=== PATIENT | female | born 1945 | race Caucasian/White ===

== ENCOUNTER 2017-05-18 09:47 | Outpatient (CLI) | payer MEDICARE, BC ==
--- NOTE | 2017-05-19 16:08 | Mammography Report ---
DIGITAL SCREENING MAMMOGRAM: 05/18/2017 CLINICAL INDICATION: A 71-year-old with history of benign right breast biopsy, for screening. COMPARISON: 01/2015, 07/2014, 01/2014, 09/2012, 09/2011, 03/2011, 09/2010. TECHNIQUE: Routine CC and MLO projections were obtained of the breasts. FINDINGS: The breasts again demonstrate scattered fibroglandular densities bilaterally. Circumscribe d nodule in the right upper central breast is stable. No suspicious masses, clustered microcalcificat ions, or regions of architectural distortion are identified. IMPRESSION: BENIGN FINDINGS. RECOMMENDATION: ROUTINE ANNUAL SCREENING UNLESS OTHERWISE CLINICALLY INDICATED. BIRADS CATEGORY 2-BENIGN FINDINGS. STANDARD QUALIFYING STATEMENTS 1. This examination was reviewed with the aid of Computer-Aided Detection (CAD). 2. A negative or benign imaging report should not delay biopsy if clinically suspicious findings are present. Consider surgical consultation if warranted. More than 5% of cancers are not identified by i maging. 3. Dense breasts may obscure an underlying neoplasm. JOB #: [id number] EXT JOB #:[id number]
== END 2017-05-18 09:48 | disposition home or self-care (01) ==
LOC: DI 09:47
PROVIDERS: ATTEND Internal Medicine
DX: Z12.31 Encounter for screening mammogram for malignant neoplasm of breast (principal)
CPT/HCPCS: 77067

== ENCOUNTER 2017-07-15 15:32 | Outpatient (CLI) | payer MEDICARE, BC ==
[2017-07-15 13:31] LABS: BASOPHILS % (AUTO) 0.5 %; EOSINOPHILS # (AUTO) 0.2 10^3/uL (0.0-0.7); EOSINOPHILS % (AUTO) 3.7 %; HCT - HEMATOCRIT 37.4 % (37.0-47.0); HGB - HEMOGLOBIN 12.4 g/dL (12.0-16.0); LYMPHOCYTES # (AUTO) 1.9 10^3/uL (1.5-3.5); LYMPHOCYTES % (AUTO) 38.8 %; MEAN CORPUSCULAR HEMOGLOBIN 29.4 pg (27.0-31.0); MEAN CORPUSCULAR HGB CONC 33.3 g/dL (32.0-36.0); MEAN CORPUSCULAR VOLUME 88.4 fL (81.0-99.0); MEAN PLATELET VOLUME 7.9 fL (7.9-10.8); MONOCYTES # (AUTO) 0.3 10^3/uL (0.0-1.0); MONOCYTES % (AUTO) 6.3 %; NEUTROPHILS # (AUTO) 2.5 10^3/uL (1.5-6.6); NEUTROPHILS % (AUTO) 50.7 %; RED BLOOD COUNT 4.23 10^6/uL (4.20-5.40); RED CELL DISTRIBUTION WIDTH 13.7 % (12.0-15.0)
[2017-07-15 13:53] LABS: ALBUMIN/GLOBULIN RATIO 1.5 (1.0-2.2); BILIRUBIN,TOTAL 0.5 mg/dL (0.2-1.0); BUN - BLOOD UREA NITROGEN 19 mg/dL (6-20); CALCIUM 9.3 mg/dL (8.5-10.3); CARBON DIOXIDE - CO2 28 mmol/L (21-32); CHLORIDE 103 mmol/L (101-111); CHOL/HDL RATIO 2.4 (<4.4); CHOLESTEROL 195 mg/dL; CREATININE 0.7 mg/dL (0.4-1.0); GFR - MDRD 82 (>89); GLUCOSE 88 mg/dL (70-100); HDL CHOLESTEROL 82 mg/dL; LDL/HDL RATIO 1.2 (<4.4); POTASSIUM 4.5 mmol/L (3.5-5.0); SODIUM 139 mmol/L (135-145); TOTAL PROTEIN 7.1 g/dL (6.7-8.2); TRIGLYCERIDES 70 mg/dL; VLDL CHOLESTEROL 14 mg/dL
== END 2017-07-15 15:33 | disposition home or self-care (01) ==
LOC: LAB.R 15:32
PROVIDERS: ATTEND Internal Medicine
DX: Z79.899 Other long term (current) drug therapy (principal); J45.909 Unspecified asthma, uncomplicated; E78.5 Hyperlipidemia, unspecified; I10 Essential (primary) hypertension
CPT/HCPCS: 80053; 80061; 84443; 85025

== ENCOUNTER 2018-08-22 09:25 | Outpatient (CLI) | payer MEDICARE, BC ==
[2018-08-22 14:08] LABS: BASOPHILS % (AUTO) 0.8 %; EOSINOPHILS # (AUTO) 0.2 10^3/uL (0.0-0.7); EOSINOPHILS % (AUTO) 3.1 %; HGB - HEMOGLOBIN 12.7 g/dL (12.0-16.0); LYMPHOCYTES # (AUTO) 1.4 10^3/uL (1.5-3.5); LYMPHOCYTES % (AUTO) 29.2 %; MEAN CORPUSCULAR HEMOGLOBIN 30.2 pg (27.0-31.0); MEAN CORPUSCULAR VOLUME 88.7 fL (81.0-99.0); MONOCYTES # (AUTO) 0.3 10^3/uL (0.0-1.0); MONOCYTES % (AUTO) 5.5 %; NEUTROPHILS % (AUTO) 61.4 %; PLT - PLATELET COUNT 236 10^3/uL (130-450); RED BLOOD COUNT 4.21 10^6/uL (4.20-5.40); RED CELL DISTRIBUTION WIDTH 13.2 % (12.0-15.0); WHITE BLOOD COUNT 4.9 x10^3/uL (4.8-10.8)
[2018-08-22 14:35] LABS: ALBUMIN 4.3 g/dL (3.2-5.5); ALBUMIN/GLOBULIN RATIO 1.5 (1.0-2.2); ALKALINE PHOSPHATASE 81 IU/L (42-121); ALT ALANINE AMINOTRANSFERASE 15 IU/L (10-60); AST ASPARTATE AMINOTRANSFERASE 20 IU/L (10-42); BILIRUBIN,TOTAL 0.7 mg/dL (0.2-1.0); BUN - BLOOD UREA NITROGEN 17 mg/dL (6-20); CALCIUM 9.2 mg/dL (8.5-10.3); CARBON DIOXIDE - CO2 29 mmol/L (21-32); CHLORIDE 100 mmol/L (101-111); CHOL/HDL RATIO 2.3 (<4.4); CHOLESTEROL 189 mg/dL; CREATININE 0.7 mg/dL (0.4-1.0); GFR - MDRD 82 (>89); GLUCOSE 91 mg/dL (70-100); HDL CHOLESTEROL 81 mg/dL; LDL CHOLESTEROL,CALCULATED 84 mg/dL; SODIUM 138 mmol/L (135-145); TOTAL PROTEIN 7.1 g/dL (6.7-8.2); VLDL CHOLESTEROL 24 mg/dL
== END 2018-08-22 23:59 | disposition home or self-care (01) ==
LOC: LAB.R 09:25
PROVIDERS: ATTEND Internal Medicine
DX: Z79.899 Other long term (current) drug therapy (principal); J45.909 Unspecified asthma, uncomplicated; M85.80 Other specified disorders of bone density and structure, unspecified site; E78.5 Hyperlipidemia, unspecified; I10 Essential (primary) hypertension
CPT/HCPCS: 80053; 80061; 82306; 83721; 85025

== ENCOUNTER 2019-01-09 09:02 | Outpatient (CLI) | payer MEDICARE, BC ==
[2019-01-09 09:39] LABS: HGB - HEMOGLOBIN 12.8 g/dL (12.0-16.0); MEAN CORPUSCULAR HEMOGLOBIN 29.6 pg (27.0-31.0); MEAN CORPUSCULAR HGB CONC 33.5 g/dL (32.0-36.0); MEAN CORPUSCULAR VOLUME 88.4 fL (81.0-99.0); MEAN PLATELET VOLUME 7.4 fL (7.9-10.8); RED BLOOD COUNT 4.34 10^6/uL (4.20-5.40)
[2019-01-09 09:47] LABS: CALCIUM 8.9 mg/dL (8.5-10.3); CREATININE 0.6 mg/dL (0.4-1.0)
--- NOTE | 2019-01-09 09:51 | XRAY Report ---
Reason: ASTHMA Procedure Date: 01/09/2019 Accession Number: [id number] / [id number] Procedure: XR - Chest 2 View X-Ray CPT Code: 58100 FULL RESULT: EXAM: CHEST RADIOGRAPHY EXAM DATE: 01/09/2019 09:18 AM. CLINICAL HISTORY: Asthma. COMPARISON: 06/30/2010 3:05 PM. TECHNIQUE: 2 views. FINDINGS: Lungs/Pleura: No focal opacities evident. No pleural effusion. No pneumothorax. Normal volumes. Mediastinum: Heart and mediastinal contours are unremarkable. Other: None. IMPRESSION: Normal 2-view chest radiography. RADIA
== END 2019-01-09 09:03 | disposition home or self-care (01) ==
LOC: DI 09:02
PROVIDERS: ATTEND Family Medicine
DX: J45.909 Unspecified asthma, uncomplicated (principal); Z79.899 Other long term (current) drug therapy
CPT/HCPCS: 36415; 71046; 80048; 83880; 85027

== ENCOUNTER 2019-02-07 11:35 | Outpatient (CLI) | payer MEDICARE, BC ==
[2019-02-07 12:20] LABS: THYROID STIMULATING HORMONE 1.74 uIU/mL (0.34-5.60)
== END 2019-02-07 11:36 | disposition home or self-care (01) ==
LOC: LAB 11:35
PROVIDERS: ATTEND Family Medicine
DX: R41.3 Other amnesia (principal)
CPT/HCPCS: 36415; 81599; 82607; 82746; 84443; 86592

== ENCOUNTER 2019-04-25 09:22 | Outpatient (CLI) | payer MEDICARE, BC ==
--- NOTE | 2019-04-25 16:50 | CT Report ---
Reason: MEMORY LOSS Procedure Date: 04/25/2019 Accession Number: [id number] / [id number] Procedure: CT - HEAD WO CPT Code: FULL RESULT: EXAM: CT HEAD WITHOUT CONTRAST. EXAM DATE: 04/25/2019 09:39 AM. CLINICAL HISTORY: Memory loss. COMPARISON: None. TECHNIQUE: Multiaxial CT images were obtained from the foramen magnum to the vertex. Reformats: Sagittal and coronal. IV contrast: None. In accordance with CT protocol optimization, one or more of the following dose reduction techniques were utilized for this exam: automated exposure control, adjustment of mA and/or KV based on patient size, or use of iterative reconstructive technique. FINDINGS: Parenchyma: No intraparenchymal hemorrhage. No evidence of mass, midline shift. Lozano-white differentiation is distinct. Extraaxial Spaces: Basal cisterns are patent. No subdural or epidural collections identified. Ventricles: Normal ventricular configuration. Sinuses and Orbits: There is partial opacification of the tip of the vessels in the right mastoid. Orbits are within normal limits. Sinuses are unremarkable as visualized. Bones: No evidence of fracture or calvarial defect. Other: None. IMPRESSION: Partial opacification of right mastoid air cells, nonspecific finding. No acute intracranial abnormality and no mass effect or midline shift. RADIA
== END 2019-04-25 09:23 | disposition home or self-care (01) ==
LOC: DI 09:22
PROVIDERS: ATTEND Family Medicine
DX: R41.3 Other amnesia (principal)
CPT/HCPCS: 70450

== ENCOUNTER 2019-08-23 10:04 | Outpatient (CLI) | payer MEDICARE, BC ==
[2019-08-23 10:17] LABS: BASOPHILS % (AUTO) 0.4 %; EOSINOPHILS # (AUTO) 0.2 10^3/uL (0.0-0.7); EOSINOPHILS % (AUTO) 3.3 %; HGB - HEMOGLOBIN 12.7 g/dL (12.0-16.0); LYMPHOCYTES # (AUTO) 1.6 10^3/uL (1.5-3.5); LYMPHOCYTES % (AUTO) 34.9 %; MEAN CORPUSCULAR HEMOGLOBIN 29.7 pg (27.0-31.0); MEAN CORPUSCULAR HGB CONC 31.8 g/dL (32.0-36.0); MEAN CORPUSCULAR VOLUME 93.2 fL (81.0-99.0); MEAN PLATELET VOLUME 9.1 fL (7.9-10.8); MONOCYTES # (AUTO) 0.3 10^3/uL (0.0-1.0); MONOCYTES % (AUTO) 5.9 %; NEUTROPHILS # (AUTO) 2.5 10^3/uL (1.5-6.6); NEUTROPHILS % (AUTO) 55.3 %; PLT - PLATELET COUNT 213 10^3/uL (130-450); RED BLOOD COUNT 4.28 10^6/uL (4.20-5.40); RED CELL DISTRIBUTION WIDTH 13.2 % (12.0-15.0); WHITE BLOOD COUNT 4.6 x10^3/uL (4.8-10.8)
[2019-08-23 10:40] LABS: ALBUMIN 4.2 g/dL (3.2-5.5); ALBUMIN/GLOBULIN RATIO 1.4 (1.0-2.2); ALKALINE PHOSPHATASE 71 IU/L (42-121); ALT ALANINE AMINOTRANSFERASE 23 IU/L (10-60); AST ASPARTATE AMINOTRANSFERASE 24 IU/L (10-42); BILIRUBIN,TOTAL 0.6 mg/dL (0.2-1.0); BUN - BLOOD UREA NITROGEN 20 mg/dL (6-20); CALCIUM 9.1 mg/dL (8.5-10.3); CARBON DIOXIDE - CO2 29 mmol/L (21-32); CHLORIDE 104 mmol/L (101-111); CHOL/HDL RATIO 2.4 (<4.4); CHOLESTEROL 199 mg/dL; CREATININE 0.7 mg/dL (0.4-1.0); GFR - MDRD 81 (>89); GLUCOSE 100 mg/dL (70-100); HDL CHOLESTEROL 84 mg/dL; LDL CHOLESTEROL,CALCULATED 99 mg/dL; LDL/HDL RATIO 1.2 (<4.4); SODIUM 140 mmol/L (135-145); TOTAL PROTEIN 7.2 g/dL (6.7-8.2); VLDL CHOLESTEROL 16 mg/dL
== END 2019-08-23 10:05 | disposition home or self-care (01) ==
LOC: LAB 10:04
PROVIDERS: ATTEND Family Medicine
DX: F41.9 Anxiety disorder, unspecified (principal); J45.909 Unspecified asthma, uncomplicated; E78.5 Hyperlipidemia, unspecified; F33.2 Major depressive disorder, recurrent severe without psychotic features; I10 Essential (primary) hypertension; Z79.899 Other long term (current) drug therapy
CPT/HCPCS: 36415; 80053; 80061; 83721; 84443; 85025

== ENCOUNTER 2019-09-04 10:36 | Outpatient (CLI) | payer MEDICARE, BC ==
--- NOTE | 2019-09-04 14:38 | XRAY Report ---
Reason: ACUTE L HEEL PAIN X 2 MO Procedure Date: 09/04/2019 Accession Number: [id number] / [id number] Procedure: XR - Calcaneus LT CPT Code: Final Report FULL RESULT: EXAM: LEFT ANKLE RADIOGRAPHY EXAM DATE: 09/04/2019 10:54 AM. CLINICAL HISTORY: Acute left heel pain for 2 months. COMPARISON: None. TECHNIQUE: 2 views. FINDINGS: Bones: Mild inferior calcaneal spurring and minimal calcification at the Achilles tendon insertion site. No fractures or bone lesions. Joints: Normal. No effusion. No subluxations. The ankle mortise is normally aligned. Soft Tissues: Normal. No soft tissue swelling. IMPRESSION: Correlate aforementioned spurring and calcifications to plantar enthesopathy and Achilles tendinitis respectively. RADIA
== END 2019-09-04 10:37 | disposition home or self-care (01) ==
LOC: DI 10:36
PROVIDERS: ATTEND Podiatrist
DX: M77.32 Calcaneal spur, left foot (principal); M25.872 Other specified joint disorders, left ankle and foot

== ENCOUNTER 2019-10-05 08:45 | Outpatient (CLI) | payer MEDICARE, BC | END 2019-10-05 08:46 | disposition home or self-care (01) | LOC: NS 08:45 | PROVIDERS: ATTEND Nurse Practitioner | DX: Z71.3 Dietary counseling and surveillance (principal); E16.2 Hypoglycemia, unspecified | CPT/HCPCS: 97802 ==

== ENCOUNTER 2020-09-11 14:17 | Emergency (ER) | payer MEDICARE, BC ==
--- NOTE | 2020-09-11 14:50 | ED Physician Documentation ---
History of Present Illness - Stated complaint Stated Complaint: FALL, HEADACHE, CONFUSION - Chief complaint Chief Complaint: Trauma Hd/Nk - History obtained from History obtained from: Patient - Additonal information Additional information: 75-year-old female presents to the emergency department for evaluation of confusion that began about 5 days ago. She reports that she was walking in her home and tripped on a box of new reena. She fell forward onto her knees but did strike her face on the ground. She did have a minor left-sided nosebleed. However since the fall she reports that she has felt dazed and confused. She has been having recurrent headaches. Though headaches are not new for her they are more intense than usual. She is also felt some confusion when she does simple everyday tasks at home such as making coffee in which she forgets to turn the concrete block maker on or forgetting where she puts the toothbrush or toothpaste. She has had no vomiting, abdominal pain, dysuria. She denies any vision changes. She is not a substance user. Non-smoker. She does have a history of hypertension. No history of diabetes coronary artery disease or CVA. Review of Systems Constitutional: reports: Reviewed and negative Eyes: reports: Reviewed and negative Ears: reports: Reviewed and negative Nose: reports: Epistaxis Throat: reports: Reviewed and negative Cardiac: reports: Reviewed and negative Respiratory: reports: Reviewed and negative GI: reports: Reviewed and negative : reports: Reviewed and negative Skin: reports: Abrasion (s) (left lowe leg) Musculoskeletal: denies: Neck pain, Back pain, Extremity pain Neurologic: reports: Confused, Headache, Head injury. denies: Generalized weakness, Focal weakness, Near syncope, Syncope, Seizure, Altered mental status, Unresponsive, LOC Psychiatric: denies: Depressed, Suicidal PD PAST MEDICAL HISTORY - Past Medical History Cardiovascular: Hypertension, High cholesterol Respiratory: None Endocrine/Autoimmune: None GI: None : None HEENT: None Psych: Depression, Anxiety, Panic attacks Musculoskeletal: Osteoarthritis, Fibromyalgia, Chronic back pain Derm: None - Past Surgical History General: Colonoscopy Ortho: Knee replacement HEENT: Tonsil/Adenoidectomy - Present Medications Home Medications: Ambulatory Orders Medication Instructions Recorded Confirmed Amlodipine Besylate 25 mg PO DAILY 04/13/13 09/11/20 Calcium Carb/D3/Magnesium/Zinc 1 ea PO DAILY 04/13/13 09/11/20 [Donald Mag Zinc + D Tablet] Ibuprofen [Advil] 600 mg PO ONCE PRN 04/13/13 09/11/20 Multivitamin [Multi-Vitamin Daily] 1 each PO DAILY 04/13/13 09/11/20 Pravastatin Sodium 40 mg PO DAILY PM 04/13/13 09/11/20 lisinopriL [Prinivil] 2 tab PO DAILY 04/13/13 09/11/20 Albuterol Sulf [Ventolin Hfa 1 - 2 puffs INH Q4HR PRN 09/11/20 09/11/20 Inhaler] Citalopram [CeleXA] 30 mg PO DAILY 09/11/20 09/11/20 Fluticasone/Vilanterol [Breo 1 each IH PRN PRN 09/11/20 09/11/20 Ellipta 100-25 Mcg INH] - Allergies Allergies/Adverse Reactions: Allergies Allergy/AdvReac Type Severity Reaction Status Date / Time meprobamate AdvReac Dizziness Verified 09/11/20 14:37 oxaprozin [From Daypro] AdvReac Dizziness Verified 09/11/20 14:37 PD ED PE EXPANDED - General General: Alert, No acute distress, Well developed/nourished - HEENT HEENT: Atraumatic, PERRL, EOMI - Eyes Eyes: PERRL, Normal accommodation - Neck Neck: Supple w/out meningeal sx, No tenderness - Cardiac Cardiac: Regular Rate, Regular Rhythm, Radial strong equal, Cap refill < 2 sec - Respiratory Respiratory: Clear to ausultation santo. No: Distress, Labored - Abdomen Abdomen: Normal Bowel sounds. No: Tender to palpation - Derm Derm: Normal color, Warm and dry, Pale, Rash, Bruising (Large area of bruising left lower leg below knee. No deformity. Mild tenderness. Normal gait) - Extremities Extremities: Bruising (left lower leg below knee). No: Deformity, Tenderness - Neuro Neuro: Alert and Oriented X 3, Normal motor, Normal Sensation, CNII-XII intact, Cerebellar nl, Normal gait, Normal finger nose, Normal speech. No: Confused - GCS Eye Opening: Spontaneous Motor: Obeys Commands Verbal: Oriented Total: 15 Results - Vitals Vitals: Vital Signs - 24 hr 09/11/20 09/11/20 09/11/20 14:30 15:06 16:13 Temperature 36.9 C 36.9 C Heart Rate 75 69 60 Respiratory 19 18 18 Rate Blood Pressure 183/101 H 193/82 H 177/82 H O2 Saturation 98 100 100 09/11/20 16:15 Temperature 36.7 C Heart Rate Respiratory Rate Blood Pressure O2 Saturation Oxygen O2 Source Room air - Labs Labs: Laboratory Tests 09/11/20 09/11/20 09/11/20 15:11 15:11 15:11 WBC 5.6 RBC 4.07 L Hgb 12.3 Hct 37.8 MCV 92.9 MCH 30.2 MCHC 32.5 RDW 13.2 Plt Count 225 MPV 8.8 Neut # (Auto) 3.1 Lymph # (Auto) 2.0 Cloud # (Auto) 0.4 Eos # (Auto) 0.1 Baso # (Auto) 0.0 Absolute Nucleated RBC 0.00 Nucleated RBC % 0.0 Sodium 139 Potassium 4.1 Chloride 101 Carbon Dioxide 29 Anion Gap 9.0 BUN 18 Creatinine 0.7 Estimated GFR (MDRD) 81 L Glucose 108 H Calcium 8.9 Total Bilirubin 0.4 AST 20 ALT 16 Alkaline Phosphatase 70 Total Protein 6.9 Albumin 4.0 Globulin 2.9 Albumin/Globulin Ratio 1.4 Lipase 33 TSH 1.33 Urine Color Urine Clarity Urine pH Ur Specific [place] Urine Protein Urine Glucose (UA) Urine Ketones Urine Occult Blood Urine Nitrite Urine Bilirubin Urine Urobilinogen Ur Leukocyte Esterase Ur Microscopic Review Urine Culture Comments 09/11/20 15:20 WBC RBC Hgb Hct MCV MCH MCHC RDW Plt Count MPV Neut # (Auto) Lymph # (Auto) Cloud # (Auto) Eos # (Auto) Baso # (Auto) Absolute Nucleated RBC Nucleated RBC % Sodium Potassium Chloride Carbon Dioxide Anion Gap BUN Creatinine Estimated GFR (MDRD) Glucose Calcium Total Bilirubin AST ALT Alkaline Phosphatase Total Protein Albumin Globulin Albumin/Globulin Ratio Lipase TSH Urine Color YELLOW Urine Clarity CLEAR Urine pH 7.5 Ur Specific [place] 1.010 Urine Protein NEGATIVE Urine Glucose (UA) NEGATIVE Urine Ketones NEGATIVE Urine Occult Blood NEGATIVE Urine Nitrite NEGATIVE Urine Bilirubin NEGATIVE Urine Urobilinogen 0.2 (NORMAL) Ur Leukocyte Esterase NEGATIVE Ur Microscopic Review NOT INDICATED Urine Culture Comments NOT INDICATED - Rads (name of study) CT head Radiology: Final report received (No acute intracranial abnormality. Partial fluid opacification in the right mastoid air cells suggestive of mastoiditis. Findings are similar to the prior study) PD MEDICAL DECISION MAKING - ED course Complexity details: reviewed old records, reviewed results, re-evaluated patient, considered differential, d/w patient ED course: 75-year-old female was brought into the emergency department for evaluation of what she feels is increasing confusion after striking her head 5 days ago after tripping on some reena at home. On presentation here to the emergency department she appears remarkably well and has no focal neuro deficits. She is alert and oriented x4. Head CT was completed and it does not show any acute intracranial abnormalities. Patient's hemoglobin is normal and her electrolytes and thyroid are essentially unremarkable. no signs of UTI on UA I suspect that she may have a mild postconcussive syndrome after her fall 5 days ago. She certainly does not have any focal deficits suggestive of a stroke or TIA. Patient was encouraged to continue close follow-up with her primary care provider and emergent return precautions were discussed Departure - Departure Disposition: 01 Home, Self Care Clinical Impression: Fall Qualifiers: Encounter type: initial encounter Qualified Code(s): W19.XXXA - Unspecified fall, initial encounter Concussion Qualifiers: Encounter type: initial encounter Loss of consciousness presence/duration: without LOC Qualified Code(s): S06.0X0A - Concussion without loss of consciousness, initial encounter Condition: Stable Record reviewed to determine appropriate education?: Yes Follow-Up: Jerry Metzger MD [Primary Care Provider] - Comments: Candice your head CT was normal today. Your blood count, electrolytes and thyroid were all normal. Your urine showed no signs of infection. Your headaches and mild confusion after your fall a few days ago may simply be a mild concussion. Most of the symptoms should subside over the next week or so. I would like you to schedule close follow-up with your primary care provider. If at any point you develop a suddenly severe headache, have uncontrolled vomiting, any weakness in your arms or legs, have slurred speech or facial droop please return immediately to the department
--- NOTE | 2020-09-11 15:13 | CT Report ---
PROCEDURE: HEAD WO INDICATIONS: fall 5 days ago; confusion TECHNIQUE: Noncontrast 4.5 mm thick angled axial sections acquired from the foramen magnum to the vertex. For r adiation dose reduction, the following was used: automated exposure control, adjustment of mA and/or kV according to patient size. COMPARISON: 04/25/2019. FINDINGS: Image quality: Excellent. CSF spaces: Basal cisterns are patent. No extra-axial fluid collections. Ventricles are normal in size and shape. Brain: No intracranial hemorrhage, mass, or mass effect. Lozano-white matter interface appears preser jaswinder. Skull and face: Calvarium and visualized facial bones are intact, without suspicious lesions. Sinuses: The visualized paranasal sinuses are clear. There is partial fluid opacification of the righ t mastoid air cells. IMPRESSION: 1. No acute intracranial abnormality. 2. Partial fluid opacification of the right mastoid air cells suggestive of mastoiditis. Findings are similar to the prior study. Reviewed by: Rgegie Nash MD on 09/11/2020 3:11 PM PST Approved by: Reggie Nash MD on 09/11/2020 3:11 PM PST Station ID: [id number]
[2020-09-11 15:22] LABS: BASOPHILS % (AUTO) 0.2 %; EOSINOPHILS # (AUTO) 0.1 10^3/uL (0.0-0.7); EOSINOPHILS % (AUTO) 2.3 %; HGB - HEMOGLOBIN 12.3 g/dL (12.0-16.0); LYMPHOCYTES % (AUTO) 35.1 %; MEAN CORPUSCULAR HEMOGLOBIN 30.2 pg (27.0-31.0); MEAN CORPUSCULAR HGB CONC 32.5 g/dL (32.0-36.0); MEAN CORPUSCULAR VOLUME 92.9 fL (81.0-99.0); MEAN PLATELET VOLUME 8.8 fL (7.9-10.8); MONOCYTES # (AUTO) 0.4 10^3/uL (0.0-1.0); NEUTROPHILS # (AUTO) 3.1 10^3/uL (1.5-6.6); PLT - PLATELET COUNT 225 10^3/uL (130-450); RED BLOOD COUNT 4.07 10^6/uL (4.20-5.40); RED CELL DISTRIBUTION WIDTH 13.2 % (12.0-15.0); WHITE BLOOD COUNT 5.6 x10^3/uL (4.8-10.8)
[2020-09-11 15:30] LABS: BILIRUBIN,URINE NEGATIVE (NEGATIVE); GLUCOSE, URINE (UA) NEGATIVE (NEGATIVE); KETONES,URINE (UA) NEGATIVE (NEGATIVE); LEUKOCYTE ESTERASE, URINE NEGATIVE (NEGATIVE); NITRITE,URINE NEGATIVE (NEGATIVE); OCCULT BLOOD,URINE NEGATIVE (NEGATIVE); PH,URINE 7.5 PH (5.0-7.5); PROTEIN,URINE NEGATIVE (NEGATIVE); UROBILINOGEN,URINE 0.2 (NORMAL) E.U./dL (NORMAL)
[2020-09-11 15:31] LABS: ALBUMIN/GLOBULIN RATIO 1.4 (1.0-2.2); BILIRUBIN,TOTAL 0.4 mg/dL (0.2-1.0); CALCIUM 8.9 mg/dL (8.5-10.3); CREATININE 0.7 mg/dL (0.4-1.0); TOTAL PROTEIN 6.9 g/dL (6.7-8.2)
[2020-09-11 15:39] LABS: CLARITY,URINE CLEAR (CLEAR)
[2020-09-11 16:14] VITALS: BP 177/82
== END 2020-09-11 16:24 | disposition home or self-care (01) ==
LOC: ED 14:17
DX: S06.0X0A Concussion without loss of consciousness, initial encounter (principal); S80.12XA Contusion of left lower leg, initial encounter; W01.0XXA Fall on same level from slipping, tripping and stumbling without subsequent striking against object, initial encounter; Y93.01 Activity, walking, marching and hiking; Y92.009 Unspecified place in unspecified non-institutional (private) residence as the place of occurrence of the external cause; I10 Essential (primary) hypertension
CPT/HCPCS: 36415; 70450; 80053; 81001; 81003; 83690; 84443; 85025; 87086; 99284

== ENCOUNTER 2020-09-20 09:00 | Outpatient (CLI) | payer MEDICARE, BC ==
[2020-09-20 09:18] LABS: BASOPHILS % (AUTO) 0.4 %; EOSINOPHILS # (AUTO) 0.2 10^3/uL (0.0-0.7); EOSINOPHILS % (AUTO) 3.5 %; HGB - HEMOGLOBIN 12.5 g/dL (12.0-16.0); LYMPHOCYTES # (AUTO) 1.5 10^3/uL (1.5-3.5); LYMPHOCYTES % (AUTO) 30.8 %; MEAN CORPUSCULAR HEMOGLOBIN 29.6 pg (27.0-31.0); MEAN CORPUSCULAR VOLUME 95.3 fL (81.0-99.0); MONOCYTES # (AUTO) 0.4 10^3/uL (0.0-1.0); MONOCYTES % (AUTO) 7.4 %; NEUTROPHILS # (AUTO) 2.8 10^3/uL (1.5-6.6); NEUTROPHILS % (AUTO) 57.7 %; PLT - PLATELET COUNT 228 10^3/uL (130-450); RED BLOOD COUNT 4.23 10^6/uL (4.20-5.40); RED CELL DISTRIBUTION WIDTH 13.2 % (12.0-15.0); WHITE BLOOD COUNT 4.9 x10^3/uL (4.8-10.8)
[2020-09-20 09:41] LABS: ALBUMIN/GLOBULIN RATIO 1.3 (1.0-2.2); ALKALINE PHOSPHATASE 70 IU/L (42-121); ALT ALANINE AMINOTRANSFERASE 16 IU/L (10-60); AST ASPARTATE AMINOTRANSFERASE 20 IU/L (10-42); BILIRUBIN,TOTAL 0.6 mg/dL (0.2-1.0); BUN - BLOOD UREA NITROGEN 19 mg/dL (6-20); CALCIUM 9.2 mg/dL (8.5-10.3); CARBON DIOXIDE - CO2 28 mmol/L (21-32); CHLORIDE 103 mmol/L (101-111); CHOL/HDL RATIO 2.8 (<4.4); CHOLESTEROL 224 mg/dL; CREATININE 0.7 mg/dL (0.4-1.0); GLUCOSE 104 mg/dL (70-100); HDL CHOLESTEROL 81 mg/dL; LDL CHOLESTEROL,CALCULATED 116 mg/dL; LDL/HDL RATIO 1.4 (<4.4); SODIUM 139 mmol/L (135-145); TOTAL PROTEIN 7.1 g/dL (6.7-8.2); VLDL CHOLESTEROL 27 mg/dL
== END 2020-09-20 09:01 | disposition home or self-care (01) ==
LOC: LAB 09:00
PROVIDERS: ATTEND Family Medicine
DX: M85.80 Other specified disorders of bone density and structure, unspecified site (principal); E78.5 Hyperlipidemia, unspecified; I10 Essential (primary) hypertension
CPT/HCPCS: 36415; 80053; 80061; 83721; 84443; 85025

== ENCOUNTER 2021-02-03 07:00 | Outpatient (CLI) | payer MEDICARE, BC | END 2021-02-03 23:59 | disposition home or self-care (01) | LOC: COV 07:00 | PROVIDERS: ATTEND Family Medicine | DX: R05 Cough (principal); Z20.822 Contact with and (suspected) exposure to COVID-19 ==

== ENCOUNTER 2021-02-11 10:08 | Emergency (ER) | payer MEDICARE, BC ==
--- NOTE | 2021-02-11 10:45 | ED Physician Documentation ---
PD HPI DYSPNEA - Stated complaint Stated Complaint: SOA - Chief complaint Chief Complaint: Resp - History obtained from History obtained from: Patient - History of Present Illness Timing - onset: How many weeks ago (10/19) Timing - onset during: Rest Timing - duration: Weeks (10/19) Timing - details: Gradual onset, Still present, Still present in ED Inciting event(s): URI (has had some cough and congestion, mild sputum. feeling ill.). No: Out of meds Improved by: Inhaler/neb (but not consistently), Rest. No: Sitting up Worsened by: Exertion, Coughing. No: Laying flat Associated symptoms: Cough, Wheezing. No: Fever, Hemoptysis, Palpitations, Bilateral edema Similar symptoms before: Diagnosis (COPD and bronchitis in the past.) Recently seen: Clinic (walk in last week and Rx Prednisone for 5 days and Doxycycline bid. Patient says no improvement and having some GI upset with meds.) Review of Systems Constitutional: denies: Fever, Chills Nose: reports: Congestion. denies: Rhinorrhea / runny nose Throat: denies: Sore throat Cardiac: denies: Chest pain / pressure, Palpitations Respiratory: reports: Dyspnea, Cough, Wheezing. denies: Hemoptysis GI: reports: Abdominal Pain (mild crampy), Nausea. denies: Abdominal Swelling, Vomiting : denies: Dysuria, Frequency Musculoskeletal: denies: Neck pain, Back pain, Extremity swelling PD PAST MEDICAL HISTORY - Past Medical History Cardiovascular: Hypertension, High cholesterol Respiratory: None Neuro: Tremors, Other Endocrine/Autoimmune: None GI: None : None HEENT: None Psych: Depression, Anxiety, Panic attacks Musculoskeletal: Osteoarthritis, Fibromyalgia, Chronic back pain Derm: None - Past Surgical History Past Surgical History: Yes General: Colonoscopy Ortho: Knee replacement HEENT: Tonsil/Adenoidectomy - Present Medications Home Medications: Ambulatory Orders Medication Instructions Recorded Confirmed Amlodipine Besylate 25 mg PO DAILY 04/13/13 09/11/20 Calcium Carb/D3/Magnesium/Zinc 1 ea PO DAILY 04/13/13 09/11/20 [Donald Mag Zinc + D Tablet] Ibuprofen [Advil] 600 mg PO ONCE PRN 04/13/13 09/11/20 Multivitamin [Multi-Vitamin Daily] 1 each PO DAILY 04/13/13 09/11/20 Pravastatin Sodium 40 mg PO DAILY PM 04/13/13 09/11/20 lisinopriL [Prinivil] 2 tab PO DAILY 04/13/13 09/11/20 Albuterol Sulf [Ventolin Hfa 1 - 2 puffs INH Q4HR PRN 09/11/20 09/11/20 Inhaler] Citalopram [CeleXA] 30 mg PO DAILY 09/11/20 09/11/20 Fluticasone/Vilanterol [Breo 1 each IH PRN PRN 09/11/20 09/11/20 Ellipta 100-25 Mcg INH] Albuterol Sulf [Ventolin Hfa 2 - 3 puffs INH Q4HR PRN #1 inhaler 02/11/21 Inhaler] cefUROXime axetiL [Ceftin] 250 mg PO Q12H #12 tablet 02/11/21 dexAMETHasone [Decadron] 4 mg PO DAILY #7 tablet 02/11/21 - Allergies Allergies/Adverse Reactions: Allergies Allergy/AdvReac Type Severity Reaction Status Date / Time amoxicillin [From Augmentin] Allergy Unknown Verified 09/17/20 08:15 atenolol Allergy Unknown Verified 09/17/20 08:15 celecoxib [From Celebrex] Allergy Unknown Verified 09/17/20 08:15 clavulanic acid Allergy Unknown Verified 09/17/20 08:15 [From Augmentin] naproxen Allergy Unknown Verified 09/17/20 08:15 oxycodone Allergy Unknown Verified 09/17/20 08:15 tramadol Allergy Unknown Verified 09/17/20 08:15 venlafaxine [From Effexor] Allergy Unknown Verified 09/17/20 08:15 meprobamate AdvReac Dizziness Verified 09/11/20 14:37 oxaprozin [From Daypro] AdvReac Dizziness Verified 09/11/20 14:37 - Social History Does the pt smoke?: No Smoking Status: Never smoker Does the pt drink ETOH?: No Does the pt have substance abuse?: No - Immunizations Immunizations are current?: No Immunizations: TDAP >10years/unknown PD ED PE NORMAL - Vitals Vital signs reviewed: Yes - General General: Alert and oriented X 3, No acute distress, Well developed/nourished - HEENT HEENT: Pharynx benign - Neck Neck: Supple, no meningeal sign, No adenopathy - Cardiac Cardiac: RRR, No murmur - Respiratory Respiratory: No: Clear bilaterally (wheezing ) - Abdomen Abdomen: Soft, Non tender - Derm Derm: Normal color, Warm and dry - Extremities Extremities: No edema, No calf tenderness / cord - Neuro Neuro: Alert and oriented X 3, No motor deficit, Normal speech Results - Vitals Vitals: Vital Signs - 24 hr 02/11/21 02/11/21 02/11/21 10:29 10:44 11:38 Temperature 36.9 C 36.4 C L Heart Rate 64 64 67 Respiratory 14 13 18 Rate Blood Pressure 167/78 H 167/78 H O2 Saturation 100 99 02/11/21 12:57 Temperature Heart Rate 67 Respiratory 14 Rate Blood Pressure 145/70 H O2 Saturation 97 Oxygen O2 Source Room air - EKG (time done) 1022 Rate: Rate (enter#) (66) Rhythm: NSR [place]: Normal Intervals: Normal CT QRS: Normal Ischemia: Normal ST segments. No: ST elevation c/w ischemia, ST depression - Labs Labs: Laboratory Tests 02/11/21 02/11/21 02/11/21 10:42 10:55 10:55 WBC 10.7 RBC 4.46 Hgb 13.1 Hct 41.0 MCV 91.9 MCH 29.4 MCHC 32.0 RDW 13.0 Plt Count 295 MPV 8.9 Neut # (Auto) 5.6 Lymph # (Auto) 4.1 H [place] # (Auto) 0.8 Eos # (Auto) 0.2 Baso # (Auto) 0.0 Absolute Nucleated RBC 0.00 Nucleated RBC % 0.0 Sodium 137 Potassium 3.6 Chloride 98 L Carbon Dioxide 30 Anion Gap 9.0 BUN 21 H Creatinine 0.9 Estimated GFR (MDRD) 61 L Glucose 65 L Calcium 9.7 Troponin I High Sens 3.4 B-Natriuretic Peptide 02/11/21 10:55 WBC RBC Hgb Hct MCV MCH MCHC RDW Plt Count MPV Neut # (Auto) Lymph # (Auto) [place] # (Auto) Eos # (Auto) Baso # (Auto) Absolute Nucleated RBC Nucleated RBC % Sodium Potassium Chloride Carbon Dioxide Anion Gap BUN Creatinine Estimated GFR (MDRD) Glucose Calcium Troponin I High Sens B-Natriuretic Peptide 27 - Rads (name of study) chest xray Radiology: Prelim report reviewed (no infiltraters), See rad report PD MEDICAL DECISION MAKING - ED course Complexity details: considered differential (seems COPD flare with likely some bronchitis symptoms.), d/w patient Departure - Departure Disposition: 01 Home, Self Care Clinical Impression: Bronchitis, COPD exacerbation Condition: Stable Instructions: ED COPD Flare Follow-Up: Jerry Metzger MD [Primary Care Provider] - Simon Monsalve MD [Credentialed Staff Provider] - Prescriptions: Albuterol Sulf [Ventolin Hfa Inhaler] 2 - 3 puffs INH Q4HR PRN #1 inhaler PRN Reason: Shortness Of Air/Wheezing cefUROXime axetiL [Ceftin] 250 mg PO Q12H #12 tablet dexAMETHasone [Decadron] 4 mg PO DAILY #7 tablet Comments: Your chest x-ray does not show any signs of pneumonia. Your blood tests are good without any anemia or electrolyte problems. No signs of heart failure. We can try a different steroid dosing and a different antibiotic and see if this helps your flareup better. In addition use the albuterol "rescue inhaler" 3-4 times daily for the next week. Use it in conjunction with the spacer we provided and that will improve the delivery. Recheck if not improving well over the next several days and return if worse. Discharge Date/Time: 02/11/21 14:47
--- NOTE | 2021-02-11 10:58 | XRAY Report ---
PROCEDURE: Chest 1 View X-Ray INDICATIONS: cough TECHNIQUE: One view of the chest was acquired. COMPARISON: None. FINDINGS: Surgical changes and devices: None. Lungs and pleura: No pleural effusions or pneumothorax. Lungs are clear. Mediastinum: Mediastinal contours appear normal. Heart size is normal. Bones and chest wall: No suspicious bony lesions. Overlying soft tissues appear unremarkable. IMPRESSION: No acute disease Reviewed by: Sim Traore MD on 02/11/2021 10:56 AM PDT Approved by: Sim Traore MD on 02/11/2021 10:56 AM PDT Station ID: [id number]
--- OUTSIDE RECORDS SUMMARY | 2021-02-11 11:07 | EXTERNAL MEDICAL SUMMARY RPT | Continuity of Care Document ---
:1945 Demographics Phone Unavailable Preferred Language Unknown Marital Status Unknown [employer] Affiliation Unknown Race Unknown Ethnic Group Unknown Author Organization [facility] Address [address] [phone] Phone Social History date description facility [phone]
[2021-02-11 11:09] LABS: BASOPHILS % (AUTO) 0.4 %; EOSINOPHILS # (AUTO) 0.2 10^3/uL (0.0-0.7); EOSINOPHILS % (AUTO) 1.5 %; HGB - HEMOGLOBIN 13.1 g/dL (12.0-16.0); LYMPHOCYTES # (AUTO) 4.1 10^3/uL (1.5-3.5); LYMPHOCYTES % (AUTO) 38.5 %; MEAN CORPUSCULAR HEMOGLOBIN 29.4 pg (27.0-31.0); MEAN CORPUSCULAR VOLUME 91.9 fL (81.0-99.0); MEAN PLATELET VOLUME 8.9 fL (7.9-10.8); MONOCYTES # (AUTO) 0.8 10^3/uL (0.0-1.0); MONOCYTES % (AUTO) 7.2 %; NEUTROPHILS # (AUTO) 5.6 10^3/uL (1.5-6.6); NEUTROPHILS % (AUTO) 52.1 %; PLT - PLATELET COUNT 295 10^3/uL (130-450); RED BLOOD COUNT 4.46 10^6/uL (4.20-5.40); WHITE BLOOD COUNT 10.7 x10^3/uL (4.8-10.8)
[2021-02-11] MEDS ORDERED: IPRATROPIUM/ALBUTEROL 3 ML NEB INH STA (11:20)
[2021-02-11] MEDS ORDERED: DEXAMETHASONE 10 MG/ML VIAL IVP STA (11:20)
[2021-02-11 11:21] LABS: CALCIUM 9.7 mg/dL (8.5-10.3); CREATININE 0.9 mg/dL (0.4-1.0); POTASSIUM 3.6 mmol/L (3.5-5.0)
[2021-02-11 12:58] VITALS: BP 145/70
== END 2021-02-11 14:47 | disposition home or self-care (01) ==
LOC: ED 10:08
DX: J44.1 Chronic obstructive pulmonary disease with (acute) exacerbation (principal); I10 Essential (primary) hypertension
CPT/HCPCS: 36415; 71045; 80048; 83880; 84484; 85025; 93005; 94640; 94664; 96374; 99284; A9270

== ENCOUNTER 2021-03-03 11:56 | Outpatient (CLI) | payer MEDICARE, BC | END 2021-03-03 11:57 | disposition short-term general hospital (02) | LOC: EMS 11:56 | DX: R41.0 Disorientation, unspecified (principal) | CPT/HCPCS: A0425; A0429 ==

== ENCOUNTER 2021-03-10 08:54 | Outpatient (CLI) | payer MEDICARE, BC ==
[2021-03-10 15:11] LABS: BASOPHILS % (AUTO) 0.4 %; EOSINOPHILS # (AUTO) 0.1 10^3/uL (0.0-0.7); HCT - HEMATOCRIT 27.7 % (37.0-47.0); HGB - HEMOGLOBIN 8.6 g/dL (12.0-16.0); LYMPHOCYTES # (AUTO) 1.7 10^3/uL (1.5-3.5); LYMPHOCYTES % (AUTO) 31.2 %; MEAN CORPUSCULAR HEMOGLOBIN 29.6 pg (27.0-31.0); MEAN CORPUSCULAR VOLUME 95.2 fL (81.0-99.0); MEAN PLATELET VOLUME 9.3 fL (7.9-10.8); MONOCYTES # (AUTO) 0.5 10^3/uL (0.0-1.0); MONOCYTES % (AUTO) 8.2 %; NEUTROPHILS # (AUTO) 3.2 10^3/uL (1.5-6.6); NEUTROPHILS % (AUTO) 57.8 %; PLT - PLATELET COUNT 335 10^3/uL (130-450); RED BLOOD COUNT 2.91 10^6/uL (4.20-5.40); RED CELL DISTRIBUTION WIDTH 13.6 % (12.0-15.0); WHITE BLOOD COUNT 5.6 x10^3/uL (4.8-10.8)
[2021-03-10 15:31] LABS: ALBUMIN 3.7 g/dL (3.2-5.5); ALBUMIN/GLOBULIN RATIO 1.3 (1.0-2.2); BILIRUBIN,TOTAL 0.5 mg/dL (0.2-1.0); CREATININE 0.9 mg/dL (0.4-1.0); POTASSIUM 3.7 mmol/L (3.5-5.0); TOTAL PROTEIN 6.6 g/dL (6.7-8.2)
[2021-03-10 15:41] LABS: THYROID STIMULATING HORMONE 2.07 uIU/mL (0.34-5.60)
== END 2021-03-10 08:55 | disposition home or self-care (01) ==
LOC: LAB.S 08:54
PROVIDERS: ATTEND Internal Medicine
DX: I10 Essential (primary) hypertension (principal); R01.1 Cardiac murmur, unspecified; R41.3 Other amnesia
CPT/HCPCS: 36415; 80053; 83880; 84443; 85025

== ENCOUNTER 2021-04-07 09:20 | Outpatient (CLI) | payer MEDICARE, BC ==
[2021-04-07 14:43] LABS: BASOPHILS % (AUTO) 0.4 %; EOSINOPHILS # (AUTO) 0.3 10^3/uL (0.0-0.7); EOSINOPHILS % (AUTO) 5.6 %; HCT - HEMATOCRIT 33.2 % (37.0-47.0); HGB - HEMOGLOBIN 9.9 g/dL (12.0-16.0); LYMPHOCYTES # (AUTO) 1.5 10^3/uL (1.5-3.5); LYMPHOCYTES % (AUTO) 31.8 %; MEAN CORPUSCULAR HEMOGLOBIN 28.1 pg (27.0-31.0); MEAN CORPUSCULAR HGB CONC 29.8 g/dL (32.0-36.0); MEAN CORPUSCULAR VOLUME 94.3 fL (81.0-99.0); MEAN PLATELET VOLUME 9.5 fL (7.9-10.8); MONOCYTES # (AUTO) 0.4 10^3/uL (0.0-1.0); MONOCYTES % (AUTO) 8.9 %; NEUTROPHILS # (AUTO) 2.4 10^3/uL (1.5-6.6); NEUTROPHILS % (AUTO) 52.9 %; PLT - PLATELET COUNT 280 10^3/uL (130-450); RED BLOOD COUNT 3.52 10^6/uL (4.20-5.40); RED CELL DISTRIBUTION WIDTH 13.7 % (12.0-15.0); WHITE BLOOD COUNT 4.6 x10^3/uL (4.8-10.8)
== END 2021-04-07 09:21 | disposition home or self-care (01) ==
LOC: LAB.S 09:20
PROVIDERS: ATTEND Internal Medicine
DX: D64.9 Anemia, unspecified (principal)
CPT/HCPCS: 36415; 82728; 85025

== ENCOUNTER 2021-05-26 08:56 | Outpatient (CLI) | payer MEDICARE, BC ==
[2021-05-26 15:03] LABS: BASOPHILS % (AUTO) 0.5 %; EOSINOPHILS # (AUTO) 0.2 10^3/uL (0.0-0.7); EOSINOPHILS % (AUTO) 3.8 %; HCT - HEMATOCRIT 38.6 % (37.0-47.0); HGB - HEMOGLOBIN 11.7 g/dL (12.0-16.0); LYMPHOCYTES # (AUTO) 1.5 10^3/uL (1.5-3.5); MEAN CORPUSCULAR HEMOGLOBIN 27.3 pg (27.0-31.0); MEAN CORPUSCULAR HGB CONC 30.3 g/dL (32.0-36.0); MEAN CORPUSCULAR VOLUME 90.2 fL (81.0-99.0); MEAN PLATELET VOLUME 9.5 fL (7.9-10.8); MONOCYTES # (AUTO) 0.4 10^3/uL (0.0-1.0); MONOCYTES % (AUTO) 10.4 %; NEUTROPHILS # (AUTO) 1.9 10^3/uL (1.5-6.6); NEUTROPHILS % (AUTO) 47.3 %; PLT - PLATELET COUNT 245 10^3/uL (130-450); RED BLOOD COUNT 4.28 10^6/uL (4.20-5.40); RED CELL DISTRIBUTION WIDTH 14.1 % (12.0-15.0)
[2021-05-26 15:16] LABS: ALBUMIN/GLOBULIN RATIO 1.4 (1.0-2.2); BILIRUBIN,TOTAL 0.6 mg/dL (0.2-1.0); CREATININE 0.8 mg/dL (0.4-1.0); POTASSIUM 3.9 mmol/L (3.5-5.0); TOTAL PROTEIN 6.9 g/dL (6.7-8.2)
[2021-05-26 15:40] LABS: THYROID STIMULATING HORMONE 1.76 uIU/mL (0.34-5.60)
[2021-05-26 15:44] LABS: FERRITIN 19.3 ng/mL (11.0-306.8)
== END 2021-05-26 08:57 | disposition home or self-care (01) ==
LOC: LAB.S 08:56
PROVIDERS: ATTEND Internal Medicine
DX: I10 Essential (primary) hypertension (principal); D64.9 Anemia, unspecified; E03.9 Hypothyroidism, unspecified
CPT/HCPCS: 36415; 80053; 82728; 84443; 85025

== ENCOUNTER 2021-07-18 09:22 | Outpatient (CLI) | payer MEDICARE, BC ==
[2021-07-18 14:43] LABS: ALBUMIN 4.2 g/dL (3.2-5.5); ALBUMIN/GLOBULIN RATIO 1.4 (1.0-2.2); BILIRUBIN,TOTAL 0.7 mg/dL (0.2-1.0); CALCIUM 9.4 mg/dL (8.5-10.3); CREATININE 0.8 mg/dL (0.4-1.0); POTASSIUM 4.3 mmol/L (3.5-5.0); TOTAL PROTEIN 7.1 g/dL (6.7-8.2)
[2021-07-18 14:51] LABS: BASOPHILS % (AUTO) 0.3 %; EOSINOPHILS # (AUTO) 0.2 10^3/uL (0.0-0.7); EOSINOPHILS % (AUTO) 2.6 %; HGB - HEMOGLOBIN 12.3 g/dL (12.0-16.0); LYMPHOCYTES # (AUTO) 1.9 10^3/uL (1.5-3.5); LYMPHOCYTES % (AUTO) 31.6 %; MEAN CORPUSCULAR HEMOGLOBIN 28.5 pg (27.0-31.0); MEAN CORPUSCULAR HGB CONC 31.5 g/dL (32.0-36.0); MEAN CORPUSCULAR VOLUME 90.3 fL (81.0-99.0); MONOCYTES # (AUTO) 0.4 10^3/uL (0.0-1.0); NEUTROPHILS # (AUTO) 3.6 10^3/uL (1.5-6.6); NEUTROPHILS % (AUTO) 59.3 %; PLT - PLATELET COUNT 278 10^3/uL (130-450); RED BLOOD COUNT 4.32 10^6/uL (4.20-5.40); RED CELL DISTRIBUTION WIDTH 15.9 % (12.0-15.0); WHITE BLOOD COUNT 6.1 x10^3/uL (4.8-10.8)
[2021-07-18 14:56] LABS: THYROID STIMULATING HORMONE 1.72 uIU/mL (0.34-5.60)
[2021-07-18 15:00] LABS: FERRITIN 21.2 ng/mL (11.0-306.8)
== END 2021-07-18 09:23 | disposition home or self-care (01) ==
LOC: LAB.S 09:22
PROVIDERS: ATTEND Internal Medicine
DX: D64.9 Anemia, unspecified (principal); Z79.899 Other long term (current) drug therapy; E03.9 Hypothyroidism, unspecified
CPT/HCPCS: 36415; 80053; 82728; 84443; 85025

== ENCOUNTER 2022-01-07 08:00 | Outpatient (CLI) | payer MEDICARE, BC ==
[2022-01-07 15:31] LABS: FECAL OCCULT BLOOD (FIT) NEGATIVE (NEGATIVE)
== END 2022-01-07 23:59 ==
LOC: LAB.S 08:00
PROVIDERS: ATTEND Internal Medicine
DX: Z12.11 Encounter for screening for malignant neoplasm of colon (principal)
CPT/HCPCS: 82274

== ENCOUNTER 2022-01-08 07:59 | Outpatient (CLI) | payer MEDICARE, BC ==
[2022-01-08 15:08] LABS: CHOL/HDL RATIO 2.7 (<4.4); CHOLESTEROL 197 mg/dL; HDL CHOLESTEROL 72 mg/dL; LDL CHOLESTEROL,CALCULATED 97 mg/dL; LDL/HDL RATIO 1.3 (<4.4); TRIGLYCERIDES 139 mg/dL; VLDL CHOLESTEROL 28 mg/dL
== END 2022-01-08 08:00 | disposition home or self-care (01) ==
LOC: LAB.S 07:59
PROVIDERS: ATTEND Internal Medicine
DX: K29.70 Gastritis, unspecified, without bleeding (principal); Z13.220 Encounter for screening for lipoid disorders; E78.5 Hyperlipidemia, unspecified
CPT/HCPCS: 36415; 80061; 83721

== ENCOUNTER 2022-01-23 12:37 | Outpatient (CLI) | payer MEDICARE, BC ==
--- NOTE | 2022-01-23 16:37 | DEXA Report ---
PROCEDURE: Dexa Spine and/or Hip INDICATIONS: POST MENOPAUSAL TECHNIQUE: Dual energy x-ray absorptiometry (DXA) was performed on a Supersonic System. Regions measur ed are the AP Spine, femoral neck, and if needed forearm. COMPARISON: None. FINDINGS: Lumbar Spine: Bone Mineral Density 1.241 g/cm/cm,T score 0.5, normal Left Hip: Bone Mineral Density 0.713 g/cm/cm,T score -2.3, osteopenia Left Femoral Neck: Bone Mineral Density 0.6-3 g/cm/cm, T score -3.0, osteoporosis. (T score greater or equal to -1.0: NORMAL) (T score from -1.1 to -2.4: OSTEOPENIA) (T score less than or equal to -2.5 to: OSTEOPOROSIS) Impression: Osteoporosis. Patients with diagnosis of osteoporosis or osteopenia should have regular bone mineral density assess ment. For those eligible for Medicare, routine testing is allowed once every 2 years. Testing frequ ency can be increased for patients who have rapidly progressing disease or for those who are receivin g medical therapy to restore bone mass. Reviewed by: Izzy Munguia MD, PhD on 01/23/2022 4:36 PM PDT Approved by: Izzy Munguia MD, PhD on 01/23/2022 4:36 PM PDT Station ID: [id number]
== END 2022-01-23 12:38 | disposition home or self-care (01) ==
LOC: DI 12:37
PROVIDERS: ATTEND Internal Medicine
DX: M81.0 Age-related osteoporosis without current pathological fracture (principal); Z78.0 Asymptomatic menopausal state

== ENCOUNTER 2022-02-16 07:46 | Outpatient (CLI) | payer MEDICARE, BC ==
--- NOTE | 2022-02-16 14:42 | Mammography Report ---
BILATERAL DIGITAL SCREENING MAMMOGRAM 3D/2D: 02/16/2022 CLINICAL: Routine screening. Comparison is made to exams dated: 05/18/2017 mammogram, 01/24/2015 mammogram, 08/07/2014 mammogram, and 01/22/2014 mammogram - [facility]. The tissue of both breasts is predominantly fatt y. There is a benign cyst in the right breast. No significant masses, calcifications, or other findings are seen in either breast. There has been no significant interval change. IMPRESSION: BENIGN There is no mammographic evidence of malignancy. A 1 year screening mammogram is recommended. This exam was interpreted at Station ID: [id number]. NOTE: For mammograms, a report in lay terms will be sent to the patient. Approximately 15% of breast malignancies will not be visualized mammographically. In the management of a palpable breast mass, a negative mammogram must not discourage biopsy of a clinically suspicious lesion. Electronically Signed By: Cl Chou M.D., jr/danarad:02/16/2022 09:15:28 ACR BI-RADS Category 2: Benign Finding(s) 3342F PARENCHYMAL PATTERN: (F) - The breast(s) demonstrate(s) diffuse fatty replacement. BI-RADS CATEGORY: (2) - 2 RECOMMENDATION: (ANNUAL) - Recommend routine annual screening mammography. [id number] 1 year screening LATERALITY: (B)
== END 2022-02-16 07:47 | disposition home or self-care (01) ==
LOC: DI.S 07:46
PROVIDERS: ATTEND Nurse Practitioner Family
DX: Z12.31 Encounter for screening mammogram for malignant neoplasm of breast (principal)

== ENCOUNTER 2022-03-09 09:02 | Outpatient (CLI) | payer MEDICARE, BC ==
[2022-03-09 15:30] LABS: BASOPHILS % (AUTO) 0.4 %; EOSINOPHILS # (AUTO) 0.1 10^3/uL (0.0-0.7); EOSINOPHILS % (AUTO) 2.1 %; HCT - HEMATOCRIT 38.5 % (37.0-47.0); HGB - HEMOGLOBIN 12.2 g/dL (12.0-16.0); LYMPHOCYTES # (AUTO) 1.6 10^3/uL (1.5-3.5); LYMPHOCYTES % (AUTO) 30.8 %; MEAN CORPUSCULAR HEMOGLOBIN 29.3 pg (27.0-31.0); MEAN CORPUSCULAR HGB CONC 31.7 g/dL (32.0-36.0); MEAN CORPUSCULAR VOLUME 92.5 fL (81.0-99.0); MEAN PLATELET VOLUME 9.8 fL (7.9-10.8); MONOCYTES # (AUTO) 0.4 10^3/uL (0.0-1.0); NEUTROPHILS # (AUTO) 3.1 10^3/uL (1.5-6.6); NEUTROPHILS % (AUTO) 59.3 %; PLT - PLATELET COUNT 252 10^3/uL (130-450); RED BLOOD COUNT 4.16 10^6/uL (4.20-5.40); RED CELL DISTRIBUTION WIDTH 13.2 % (12.0-15.0); WHITE BLOOD COUNT 5.3 x10^3/uL (4.8-10.8)
[2022-03-09 15:56] LABS: % IRON SATURATION 21 % (20-50); ALBUMIN 4.1 g/dL (3.2-5.5); ALBUMIN/GLOBULIN RATIO 1.4 (1.0-2.2); ALKALINE PHOSPHATASE 66 IU/L (42-121); ALT ALANINE AMINOTRANSFERASE 19 IU/L (10-60); AST ASPARTATE AMINOTRANSFERASE 25 IU/L (10-42); BILIRUBIN,TOTAL 0.7 mg/dL (0.2-1.0); BUN - BLOOD UREA NITROGEN 20 mg/dL (6-20); CALCIUM 9.5 mg/dL (8.5-10.3); CARBON DIOXIDE - CO2 28 mmol/L (21-32); CHLORIDE 96 mmol/L (101-111); CHOL/HDL RATIO 2.4 (<4.4); CHOLESTEROL 192 mg/dL; CREATININE 0.9 mg/dL (0.4-1.0); GFR - MDRD 61 (>89); GLUCOSE 106 mg/dL (70-100); HDL CHOLESTEROL 80 mg/dL; IRON 81 ug/dL (28-170); LDL CHOLESTEROL,CALCULATED 92 mg/dL; LDL/HDL RATIO 1.2 (<4.4); POTASSIUM 4.3 mmol/L (3.5-5.0); SODIUM 133 mmol/L (135-145); TOTAL IRON BINDING CAPACITY 393 ug/dL (250-450); TOTAL PROTEIN 7.1 g/dL (6.7-8.2); TRANSFERRIN 281 mg/dL (192-382); TRIGLYCERIDES 102 mg/dL; VLDL CHOLESTEROL 20 mg/dL
[2022-03-09 15:58] LABS: THYROID STIMULATING HORMONE 1.15 uIU/mL (0.34-5.60)
[2022-03-09 16:06] LABS: FERRITIN 28.2 ng/mL (11.0-306.8)
[2022-03-09 16:18] LABS: ESTIMATED AVERAGE GLUCOSE 117 mg/dL (70-100); HEMOGLOBIN A1c% 5.7 % (4.27-6.07)
== END 2022-03-09 09:03 | disposition home or self-care (01) ==
LOC: LAB.S 09:02
PROVIDERS: ATTEND Nurse Practitioner Family
DX: R53.83 Other fatigue (principal); E78.5 Hyperlipidemia, unspecified; D64.9 Anemia, unspecified; Z68.34 Body mass index [BMI] 34.0-34.9, adult; E03.9 Hypothyroidism, unspecified
CPT/HCPCS: 36415; 80053; 80061; 82728; 83036; 83540; 83721; 84443; 84466; 85025

== ENCOUNTER 2022-03-31 11:09 | Outpatient (CLI) | payer MEDICARE, BC ==
--- NOTE | 2022-03-31 17:35 | XRAY Report ---
PROCEDURE: Hips 2V BILAT INDICATIONS: HIP JOINT PAIN,RIGHT TECHNIQUE: 2 views of the right hip and left hip were acquired. COMPARISON: None FINDINGS: Bones: No fractures or dislocations. No suspicious bony lesions. The visualized pelvic ring appear s intact. Mild bilateral hip osseous hypertrophy. Soft tissues: No suspicious soft tissue calcifications or masses. IMPRESSION: Mild bilateral hip osteoarthritis. Reviewed by: Izzy Munguia MD, PhD on 03/31/2022 5:34 PM PDT Approved by: Izzy Munguia MD, PhD on 03/31/2022 5:34 PM PDT Station ID: [id number]
== END 2022-03-31 11:10 | disposition home or self-care (01) ==
LOC: DI 11:09
PROVIDERS: ATTEND Nurse Practitioner Family
DX: M16.0 Bilateral primary osteoarthritis of hip (principal)

== ENCOUNTER 2023-06-14 08:00 | Outpatient (CLI) | payer MEDICARE, BC ==
--- NOTE | 2023-06-14 16:21 | XRAY Report ---
PROCEDURE: Chest 2 View X-Ray INDICATIONS: CHEST PAIN TECHNIQUE: 2 views of the chest were acquired. COMPARISON: None. FINDINGS: Surgical changes and devices: None. Lungs and pleura: Small right pleural effusion is seen with blunting of right costophrenic angle. No definite focal infiltrate. No pneumothorax. Mild pulmonary vascular congestion is seen. Mediastinum: Mediastinal contours appear normal. Heart size is enlarged. Bones and chest wall: No suspicious bony lesions. Overlying soft tissues appear unremarkable. IMPRESSION: Thyromegaly and mild congestion concerning for CHF. Small right pleural effusion. No definite focal i nfiltrate. No gross pneumothorax. Reviewed by: Kvng Morejon MD on 06/14/2023 4:19 PM PDT Approved by: Kvng Morejon MD on 06/14/2023 4:19 PM PDT Station ID: [id number]
== END 2023-06-14 23:59 | disposition home or self-care (01) ==
LOC: DI.S 08:00
PROVIDERS: ATTEND Physician Assistant
DX: R07.9 Chest pain, unspecified (principal); E01.0 Iodine-deficiency related diffuse (endemic) goiter; R09.89 Other specified symptoms and signs involving the circulatory and respiratory systems; J90 Pleural effusion, not elsewhere classified

== ENCOUNTER 2023-06-14 10:04 | Outpatient (CLI) | payer MEDICARE, BC | END 2023-06-14 10:05 | disposition short-term general hospital (02) | LOC: EMS 10:04 | DX: R07.89 Other chest pain (principal); R06.02 Shortness of breath | CPT/HCPCS: A0425; A0427 ==

== ENCOUNTER 2023-06-30 08:14 | Outpatient (CLI) | payer MEDICARE, BC ==
[2023-06-30 14:43] LABS: BASOPHILS % (AUTO) 0.6 %; EOSINOPHILS # (AUTO) 0.2 10^3/uL (0.0-0.7); HCT - HEMATOCRIT 37.3 % (37.0-47.0); HGB - HEMOGLOBIN 11.6 g/dL (12.0-16.0); LYMPHOCYTES # (AUTO) 1.5 10^3/uL (1.5-3.5); MEAN CORPUSCULAR HGB CONC 31.1 g/dL (32.0-36.0); MEAN CORPUSCULAR VOLUME 93.3 fL (81.0-99.0); MEAN PLATELET VOLUME 9.5 fL (7.9-10.8); MONOCYTES # (AUTO) 0.4 10^3/uL (0.0-1.0); MONOCYTES % (AUTO) 7.4 %; NEUTROPHILS # (AUTO) 3.2 10^3/uL (1.5-6.6); NEUTROPHILS % (AUTO) 60.8 %; PLT - PLATELET COUNT 267 10^3/uL (130-450); RED CELL DISTRIBUTION WIDTH 13.5 % (12.0-15.0); WHITE BLOOD COUNT 5.3 x10^3/uL (4.8-10.8)
[2023-06-30 15:44] LABS: % IRON SATURATION 14 % (20-50); ALBUMIN 4.2 g/dL (3.2-5.5); ALBUMIN/GLOBULIN RATIO 1.6 (1.0-2.2); ALKALINE PHOSPHATASE 79 IU/L (42-121); ALT ALANINE AMINOTRANSFERASE 13 IU/L (10-60); AST ASPARTATE AMINOTRANSFERASE 19 IU/L (10-42); BILIRUBIN,TOTAL 0.4 mg/dL (0.2-1.0); BUN - BLOOD UREA NITROGEN 18 mg/dL (6-20); CALCIUM 9.5 mg/dL (8.5-10.3); CARBON DIOXIDE - CO2 31 mmol/L (21-32); CHLORIDE 106 mmol/L (101-111); CHOL/HDL RATIO 2.5 (<4.4); CHOLESTEROL 191 mg/dL; CREATININE 0.9 mg/dL (0.6-1.3); GFR - MDRD 60 (>89); GLUCOSE 108 mg/dL (74-104); HDL CHOLESTEROL 76 mg/dL; IRON 56 ug/dL (50-212); LDL CHOLESTEROL,CALCULATED 98 mg/dL; LDL/HDL RATIO 1.3 (<4.4); POTASSIUM 4.6 mmol/L (3.5-4.5); SODIUM 139 mmol/L (135-145); TOTAL IRON BINDING CAPACITY 414 ug/dL (250-450); TOTAL PROTEIN 6.9 g/dL (6.4-8.9); TRANSFERRIN 296 mg/dL (203-362); TRIGLYCERIDES 84 mg/dL (48-352); VLDL CHOLESTEROL 17 mg/dL
[2023-06-30 15:55] LABS: THYROID STIMULATING HORMONE 1.45 uIU/mL (0.34-5.60)
== END 2023-06-30 08:15 | disposition home or self-care (01) ==
LOC: LAB.S 08:14
PROVIDERS: ATTEND Nurse Practitioner Family
DX: E78.5 Hyperlipidemia, unspecified (principal); I11.0 Hypertensive heart disease with heart failure; I50.9 Heart failure, unspecified; R53.83 Other fatigue
CPT/HCPCS: 36415; 80053; 80061; 82607; 82728; 82746; 83540; 83721; 84443; 84466; 85025

== ENCOUNTER 2023-07-01 12:13 | Outpatient (CLI) | payer MEDICARE, BC | END 2023-07-01 12:14 | disposition short-term general hospital (02) | LOC: EMS 12:13 | DX: R07.89 Other chest pain (principal); R68.84 Jaw pain; R53.1 Weakness; Z95.0 Presence of cardiac pacemaker | CPT/HCPCS: A0425; A0427 ==

== ENCOUNTER 2023-10-04 10:13 | Outpatient (CLI) | payer MEDICARE, BC ==
[2023-10-04 15:11] LABS: BASOPHILS % (AUTO) 0.4 %; EOSINOPHILS # (AUTO) 0.2 10^3/uL (0.0-0.7); EOSINOPHILS % (AUTO) 4.1 %; HCT - HEMATOCRIT 37.9 % (37.0-47.0); HGB - HEMOGLOBIN 11.6 g/dL (12.0-16.0); LYMPHOCYTES # (AUTO) 1.8 10^3/uL (1.5-3.5); LYMPHOCYTES % (AUTO) 34.7 %; MEAN CORPUSCULAR HEMOGLOBIN 28.6 pg (27.0-31.0); MEAN CORPUSCULAR HGB CONC 30.6 g/dL (32.0-36.0); MEAN CORPUSCULAR VOLUME 93.6 fL (81.0-99.0); MEAN PLATELET VOLUME 9.8 fL (7.9-10.8); MONOCYTES # (AUTO) 0.4 10^3/uL (0.0-1.0); MONOCYTES % (AUTO) 7.7 %; NEUTROPHILS # (AUTO) 2.7 10^3/uL (1.5-6.6); NEUTROPHILS % (AUTO) 52.9 %; PLT - PLATELET COUNT 248 10^3/uL (130-450); RED BLOOD COUNT 4.05 10^6/uL (4.20-5.40); RED CELL DISTRIBUTION WIDTH 14.4 % (12.0-15.0); WHITE BLOOD COUNT 5.2 x10^3/uL (4.8-10.8)
[2023-10-04 15:17] LABS: ALBUMIN 4.3 g/dL (3.2-5.5); ALBUMIN/GLOBULIN RATIO 1.5 (1.0-2.2); BILIRUBIN,TOTAL 0.3 mg/dL (0.2-1.0); CALCIUM 9.6 mg/dL (8.5-10.3); CREATININE 0.8 mg/dL (0.6-1.3); POTASSIUM 4.7 mmol/L (3.5-4.5); TOTAL PROTEIN 7.2 g/dL (6.4-8.9)
== END 2023-10-04 10:14 | disposition home or self-care (01) ==
LOC: LAB.S 10:13
PROVIDERS: ATTEND Nurse Practitioner Family
DX: I10 Essential (primary) hypertension (principal); D64.9 Anemia, unspecified
CPT/HCPCS: 36415; 80053; 85025

== ENCOUNTER 2023-10-16 07:00 | Outpatient (CLI) | payer MEDICARE, BC ==
--- NOTE | 2023-10-16 12:20 | XRAY Report ---
PROCEDURE: Chest 2V INDICATIONS: SHORTNESS OF BREATH/COUGH TECHNIQUE: 2 views of the chest were acquired. COMPARISON: 06/14/2023 FINDINGS: Surgical changes and devices: Left chest wall pulse. Her with dual chamber electrodes leads. Lungs and pleura: No dense consolidation. Possible basal atelectasis, aspiration, or scarring. No pl eural effusions. Mediastinum: Borderline heart size Bones and chest wall: No acute or suspicious osseous findings on radiography. Thoracic degenerative changes. IMPRESSION: No acute radiographic abnormality. Possible basal scarring, atelectasis, or aspiration. Reviewed by: Omar Dhillon MD on 10/16/2023 12:19 PM PST Approved by: Omar Dhillon MD on 10/16/2023 12:19 PM PST Station ID: [id number]
== END 2023-10-16 23:59 | disposition home or self-care (01) ==
LOC: DI.S 07:00
PROVIDERS: ATTEND Physician Assistant Medical
DX: R05.8 Other specified cough (principal); R06.02 Shortness of breath; R06.2 Wheezing

== ENCOUNTER 2023-10-29 00:18 | Outpatient (CLI) | payer MEDICARE, BC | END 2023-10-29 00:19 | disposition EMS.NT | LOC: EMS 00:18 | DX: R07.89 Other chest pain (principal) ==

== ENCOUNTER 2023-10-29 08:00 | Outpatient (CLI) | payer MEDICARE, BC ==
--- NOTE | 2023-10-29 11:09 | XRAY Report ---
PROCEDURE: Ribs w/PA Chest 3+V RT INDICATIONS: RIGHT RIB PAIN TECHNIQUE: 3 views of the right ribs were acquired, along with a single view chest. COMPARISON: Chest radiographs 09/19/2023. FINDINGS: Surgical changes and devices: A cardiac pacemaker is seen with pulse generator in the left chest. Bones and chest wall: . There is a minimally displaced fracture of the posterolateral right 8th rib. No suspicious bony lesions. Overlying soft tissues appear unremarkable. Lungs and pleura: No pleural effusions or pneumothorax. Mild linear atelectasis or scarring at the r ight midlung zone and bilateral lung bases. Mediastinum: Mediastinal contours appear normal. Heart size is normal. IMPRESSION: Minimally displaced fracture of the posterior lateral right 8th rib. No pleural effusion or pneumotho rax. Reviewed by: Luis Manuel Kincaid MD on 10/29/2023 11:08 AM PST Approved by: Luis Manuel Kincaid MD on 10/29/2023 11:08 AM PST Station ID: [id number]
== END 2023-10-29 23:59 | disposition home or self-care (01) ==
LOC: DI.S 08:00
PROVIDERS: ATTEND Emergency Medicine
DX: S22.31XA Fracture of one rib, right side, initial encounter for closed fracture (principal)

== ENCOUNTER 2024-01-31 08:39 | Outpatient (CLI) | payer MEDICARE, BC ==
--- NOTE | 2024-02-01 09:25 | Mammography Report ---
BILATERAL DIGITAL SCREENING MAMMOGRAM 3D/2D: 01/31/2024 CLINICAL: Routine screening. Comparison is made to exams dated: 02/16/2022 mammogram, 05/18/2017 mammogram, and 01/24/2015 mammogram - [facility]. There are scattered areas of fibroglandular density in both breasts (category b / 25%-50% glandular t issue). No significant masses, calcifications, or other findings are seen in either breast. There has been no significant interval change. IMPRESSION: NEGATIVE There is no mammographic evidence of malignancy. A 1 year screening mammogram is recommended. Based on the Tyrer Cuzick model (a risk assessment model) the patient's lifetime risk is 1.9% and her 10 year risk is 0.0%. According to the ACR, ACS, and NCCN guidelines, an annual breast MRI exam veronica g with mammogram is recommended if the patient's lifetime risk is 20% or greater. This exam was interpreted at Station ID: [id number]. NOTE: For mammograms, a report in lay terms will be sent to the patient. Approximately 15% of breast malignancies will not be visualized mammographically. In the management of a palpable breast mass, a negative mammogram must not discourage biopsy of a clinically suspicious lesion. Electronically Signed By: Aliza quijano/reanna:01/31/2024 16:53:11 letter sent: No_Letter ACR BI-RADS Category 1: Negative 3341F PARENCHYMAL PATTERN: (A) - The breast(s) demonstrate(s) scattered fibroglandular densities. BI-RADS CATEGORY: (1) - 1 RECOMMENDATION: (ANNUAL) - Recommend routine annual screening mammography. [id number] 1 year screening LATERALITY: (B)
== END 2024-01-31 08:40 | disposition home or self-care (01) ==
LOC: DI.S 08:39
DX: Z12.31 Encounter for screening mammogram for malignant neoplasm of breast (principal); R92.323 Mammographic fibroglandular density, bilateral breasts

== ENCOUNTER 2024-06-07 08:02 | Outpatient (CLI) | payer MEDICARE, BC ==
[2024-06-07 13:56] LABS: BASOPHILS % (AUTO) 0.3 %; EOSINOPHILS # (AUTO) 0.2 10^3/uL (0.0-0.7); EOSINOPHILS % (AUTO) 3.7 %; HCT - HEMATOCRIT 39.8 % (37.0-47.0); HGB - HEMOGLOBIN 12.1 g/dL (12.0-16.0); LYMPHOCYTES # (AUTO) 1.7 10^3/uL (1.5-3.5); LYMPHOCYTES % (AUTO) 26.9 %; MEAN CORPUSCULAR HGB CONC 30.4 g/dL (32.0-36.0); MEAN CORPUSCULAR VOLUME 95.4 fL (81.0-99.0); MEAN PLATELET VOLUME 9.7 fL (7.9-10.8); MONOCYTES # (AUTO) 0.5 10^3/uL (0.0-1.0); MONOCYTES % (AUTO) 7.2 %; NEUTROPHILS # (AUTO) 3.9 10^3/uL (1.5-6.6); NEUTROPHILS % (AUTO) 61.7 %; PLT - PLATELET COUNT 255 10^3/uL (130-450); RED BLOOD COUNT 4.17 10^6/uL (4.20-5.40); RED CELL DISTRIBUTION WIDTH 13.2 % (12.0-15.0); WHITE BLOOD COUNT 6.3 x10^3/uL (4.8-10.8)
[2024-06-07 14:24] LABS: THYROID STIMULATING HORMONE 1.61 uIU/mL (0.34-5.60)
== END 2024-06-07 08:03 | disposition home or self-care (01) ==
LOC: LAB.S 08:02
PROVIDERS: ATTEND Nurse Practitioner Family
DX: R53.83 Other fatigue (principal); E67.8 Other specified hyperalimentation; Z86.2 Personal history of diseases of the blood and blood-forming organs and certain disorders involving the immune mechanism; E03.9 Hypothyroidism, unspecified
CPT/HCPCS: 36415; 82607; 82728; 82746; 84443; 85025